=== PATIENT | female | born 1955 | race Caucasian/White ===

== ENCOUNTER 2016-08-19 10:16 | Emergency (ER) ==
[2016-08-19] MEDS ORDERED: DILAUDID IV ONE (10:23)
[2016-08-19] MEDS ORDERED: SODIUM CHLORIDE 0.9% INJ ONE (10:25)
[2016-08-19] MEDS ORDERED: PHENERGAN IV ONE (10:25)
--- NOTE | 2016-08-19 10:34 | ED EKG INTERP ---
EKG Interpretation - EKG Time of EKG reading by physician:: 10:22 EKG Read and Signed by:: Jim Roberson EKG Interpretation (*Must complete 3 of following elements*): Normal Rate: 78 Rhythm: NRS Attestation - Scribe Verification/Attestation Scribe:: Kaity San Acting as Scribe for:: Jim Roberson Scribe documention review:: This chart was documented by a scribe and accurately reflects the service the provider performed and the decisions made by the provider.
--- NOTE | 2016-08-19 10:57 | PROVIDER DOCUMENTATION ---
HPI-Musculoskeletal Pain/Inj - GENERAL Chief Complaint: Fall Stated Complaint: Fall Time Seen by Provider: 08/19/16 10:19 Source: patient - HX OF PRESENT ILLNESS-MUSKULOSKELTAL Nature of Presenting Problem: 60 yo WF with type 2 DM and severe Meniere's (s/p 4th surgery Jul 22) presents having fallen today. Hit the arm of chair while walking then struck other arm of chair with neck. Hx osteoporosis, NIDDM. Complains of R hip/pelvic pain, and neck pain which shoots down her spine when she attempts lateral movement. EMS reports patient unable to stand/walk at scene due to hip pain. Quality of Pain: reports: sharp, stabbing Severity in ED: moderate Onset/Duration: just prior to arrival Timing: still present, getting worse Modifying Factors: improves with: movement Any recent injury?: Yes Locality of Occurance: Home Similar Symptoms Previously?: No Recently seen or treated by another doctor?: No - FALL INJURY Location of Pain/Injury: reports: neck, pelvis Pain Radiation: reports: other (spine) Reason for Fall: reports: other (meniere with chronic vertigo) Symptoms prior to fall:: reports: dizzy/lightheaded. denies: headache, seizure Loss of Consciousness: no loss of consciousness Injury Associated Symptoms: reports: back/neck pain, joint pain - BACK & NECK PAIN/INJURY Back/Neck Pain Location: reports: C-spine, other (hips) Context / Method of Injury: reports: fall - HIP/PELVIS PAIN/INJURY Hip Pain Location: reports: hip (R), pelvis Pain Radiation: reports: no radiation Context / Method of Injury: reports: fall Associated Symptoms: reports: other (has chronic neuropathy). denies: loss of bladder control, loss of bowel control, lower back pain Review of Systems - Adult - REVIEW OF SYSTEMS - ADULT Constitutional: reports: no symptoms reported Eyes: reports: no symptoms reported Ears, Nose, Mouth & Throat: reports: no symptoms reported Cardiovascular: reports: no symptoms reported Respiratory: reports: no symptoms reported Gastrointestinal: reports: no symptoms reported Genitourinary: reports: no symptoms reported Musculoskeletal: reports: see HPI Integumentary: reports: no symptoms reported Neurological: reports: no symptoms reported, other (no loss of use of arms, able to move legs and feet to command) Psychiatric: reports: no symptoms reported Endocrine: reports: no symptoms reported Hematologic/Lymphatic: reports: no symptoms reported Allergic/Immunologic: reports: no symptoms reported All Other Systems: Reviewed and Negative Past History - Adult - PAST MEDICAL HISTORY-ADULT Review of Records: reports: Old Records Reviewed, Nursing Assessment Review, Medications Reviewed, Social history reviewed & non-contributory. Cardiovascular: reports: CAD Respiratory: reports: asthma Gastrointestinal: reports: inflammatory bowel disease, other (gastroparesis) Genitourinary: reports: kidney disease, other (interstitial cystitis) Musculoskeletal: reports: intervertebral disc disease, osteoporosis, other ( fibromyalgia) Endocrine/Immune: reports: Diabetes - PRIOR SURGERIES/PROCEDURES Surgical/Procedure History: reports: appendectomy, cholecystectomy, hysterectomy , BTL, , orthopedic (extremity), other (partial gastrectomy) - FAMILY HISTORY Family History: reviewed, not pertinent - SOCIAL HISTORY Smoking: denies Alcohol Use Frequency: never Physical Exam-Injury Related - Physical Exam-Injury Related Initial Vital Signs Reviewed: Yes General Appearance: appears well, alert Eyes: PERRL/EOMI Head, Ears, Nose, Mouth & Throat: normocephalic/atraumatic Neck: pain with axial compression, C-spine tenderness, decresed ROM Respiratory: lungs clear, normal breath sounds, no pleuratic chest pain Cardiovascular: normal peripheral pulses, regular rate, rhythm, no edema Abdominal Exam: soft Back Exam: no CVA tenderness Extremity: no pedal edema, no calf tenderness Integumentary: normal color, warm/dry Neurologic: grossly normal, no motor/sensory deficits Psych/Mental Status: normal mood/affect Progress - PLAN OF CARE/RESULTS Progress/Plan/Lab Results: Improved after meds. She is out of meds in pain pump will need pain meds to last into next week. - XRAY 2 XRAY Study: Pelvis - CT/MRI 2 CT Study: Neck CT Results: chronic changes, no fx or other traumatic injury Departure - Departure Time of Disposition Order: 11:41 DIAGNOSIS: Neck pain Fall Qualifiers: Encounter type: initial encounter Qualified Code(s): W19.XXXA - Unspecified fall, initial encounter Meniere disease Qualifiers: Laterality: unspecified laterality Qualified Code(s): H81.09 - Meniere's disease, unspecified ear Disposition: HOME 01 Certified Medical Emergency: Urgent Condition: Good Prescriptions: Oxycodone HCl [Dazidox] 10 mg PO 2-4XDAY PRN PRN #12 tablet PRN Reason: Pain Methocarbamol 500 mg PO TID #12 tablet
--- NOTE | 2016-08-19 12:00 | Diag Imaging Result Document ---
PROCEDURE NAME: CERVICAL SPINE W/O CONTRAST - 08/19/2016 CT CERVICAL SPINE WITHOUT CONTRAST: COMPARISON: 05/11/2013. FINDINGS: There is ossification of the posterior longitudinal ligament that extends from C2 through C3. This is causing moderate to severe central canal stenosis mainly to the right of midline. However, this is stable. There is degenerative disk disease at and below the C5-6 level. A disk osteophyte complex at C6-7 is causing at least mild central canal narrowing. This is stable as well. There is no definite fracture, subluxation, or intrinsic osseous lesion, otherwise. Surrounding soft tissues are essentially unremarkable. IMPRESSION: Stable degenerative changes at a couple levels as well as ossification of the posterior longitudinal ligament superiorly as described that is stable. No definite fracture or other definite acute C-spine injury.
--- NOTE | 2016-08-19 12:21 | Diag Imaging Result Document ---
PROCEDURE NAME: PELVIS W/O CONTRAST - 08/19/2016 CT [facility]Y PELVIS WITHOUT CONTRAST: COMPARISON: Conventional CT of the abdomen and pelvis dated 11/04/2014. FINDINGS: There is no evidence of fracture involving the pelvis, sacrum, or hips. There are degenerative changes at the lower 2 lumbar levels. The hip joint spaces appear to be preserved. There is a small cortical bone island near the right acetabulum. No significant osseous lesions are appreciated. IMPRESSION: No evidence of pelvic or hip fracture.
[2016-08-19 12:25] VITALS: BP 127/63
--- NOTE | 2016-08-20 05:54 | EKG Report ---
Test Performed on : 08/19/2016 10:22:03 AM Test Reason : Done in ED/No order in [facility] Blood Pressure : / mmHG Vent. Rate : 078 BPM Atrial Rate : 078 BPM P-R Int : 188 ms QRS Dur : 096 ms QT Int : 384 ms P-R-T Axes : 017 -19 017 degrees QTc Int : 437 ms Normal sinus rhythm. Normal ECG When compared with ECG of 30-MAY-2014 11:03, No significant change was found Unconfirmed Result
== END 2016-08-19 12:16 | disposition home or self-care (01) ==
LOC: EDBD → ED 10:16
DX: M54.2 Cervicalgia (principal); H81.09 Meniere's disease, unspecified ear; M25.551 Pain in right hip; R10.2 Pelvic and perineal pain; M54.9 Dorsalgia, unspecified; R42 Dizziness and giddiness; I25.10 Atherosclerotic heart disease of native coronary artery without angina pectoris; E11.9 Type 2 diabetes mellitus without complications; M79.7 Fibromyalgia; M81.0 Age-related osteoporosis without current pathological fracture; M47.9 Spondylosis, unspecified; Z90.3 Acquired absence of stomach [part of]; W19.XXXA Unspecified fall, initial encounter
CPT/HCPCS: 72125; 72192; 93005; 96374; 96375; J1170; J2550